=== PATIENT | male | born 1940 | race Caucasian/White ===

== ENCOUNTER → 2023-06-18 | Outpatient (CLI) | payer MEDICARE, OTHER ==
[2023-06-18 15:08] LABS: BASOPHILS ABSOLUTE AUTO 0.07 K/mm3 (0.00-0.23); BASOPHILS PERCENT AUTO 1 % (0-2); EOSINOPHILS ABSOLUTE AUTO 0.01 K/mm3 (0.00-0.68); EOSINOPHILS PERCENT AUTO 0 % (0-6); Hematocrit 46.3 % (37.0-53.0); Hemoglobin 16.4 g/dL (13.5-17.5); IMMATURE GRAN ABSOLUTE AUTO 0.24 K/mm3 (0.00-0.10); IMMATURE GRAN PERCENT AUTO 3 % (0-1); LYMPHOCYTES ABSOLUTE AUTO 1.43 K/mm3 (0.84-5.20); LYMPHOCYTES PERCENT AUTO 18 % (21-46); MONOCYTES ABSOLUTE AUTO 0.73 K/mm3 (0.16-1.47); MONOCYTES PERCENT AUTO 9 % (4-13); Mean Corpuscular HGB 33.8 pg (26.0-34.0); Mean Corpuscular HGB Conc 35.4 g/dL (31.5-36.5); Mean Corpuscular Volume 96 fL (80-100); Mean Platelet Volume 9.4 fL (9.1-12.4); NEUTROPHILS ABSOLUTE AUTO 5.55 K/mm3 (1.96-9.15); NEUTROPHILS PERCENT AUTO 69 % (41-73); Platelet Count 165 K/mm3 (150-400); RDW Coefficient Variation 12.6 % (11.7-14.2); RDW Standard Deviation 43.8 fL (35.1-46.3); Red Blood Cell Count 4.85 M/mm3 (4.30-5.90); White Blood Cell Count 8.03 K/mm3 (4.00-11.30)
[2023-06-18 15:18] LABS: Albumin, Blood 3.7 g/dL (3.4-5.0); Albumin/Globulin Ratio 1.1 (0.8-1.8); Bilirubin, Total 0.6 mg/dL (0.1-1.0); Bun/Creatinine Ratio 11.7 (12.0-20.0); Calcium, Blood 9.8 mg/dL (8.5-10.1); Creatinine, Blood 1.11 mg/dL (0.60-1.20); Globulin, Blood 3.3 g/dL (2.2-4.0); Potassium, Blood 4.1 mmol/L (3.5-5.5)
== END ==
LOC: LAB SHORT 14:56 → LAB 14:56
PROVIDERS: Emergency Medicine
DX: G43.909 Migraine, unspecified, not intractable, without status migrainosus (principal); Z79.899 Other long term (current) drug therapy
CPT/HCPCS: 36415; 80053; 80185; 83036; 85025

== ENCOUNTER 2023-06-28 10:14 | Emergency (ER) | payer MEDICARE, OTHER ==
[~2023-06-28] VITALS: Ht 160 cm; Wt 63.5 kg
[2023-06-28] MEDS ORDERED: NEURONTIN300 MG PO (10:34)
[2023-06-28] MEDS ORDERED: PHENYTOIN SODI100 MG PO (10:34)
[2023-06-28 11:10] LABS: BASOPHILS ABSOLUTE AUTO 0.08 K/mm3 (0.00-0.23); BASOPHILS PERCENT AUTO 1 % (0-2); EOSINOPHILS ABSOLUTE AUTO 0.03 K/mm3 (0.00-0.68); EOSINOPHILS PERCENT AUTO 0 % (0-6); Hematocrit 44.4 % (37.0-53.0); Hemoglobin 15.4 g/dL (13.5-17.5); IMMATURE GRAN PERCENT AUTO 2 % (0-1); LYMPHOCYTES ABSOLUTE AUTO 1.33 K/mm3 (0.84-5.20); LYMPHOCYTES PERCENT AUTO 14 % (21-46); MONOCYTES ABSOLUTE AUTO 1.19 K/mm3 (0.16-1.47); MONOCYTES PERCENT AUTO 13 % (4-13); Mean Corpuscular HGB 32.8 pg (26.0-34.0); Mean Corpuscular HGB Conc 34.7 g/dL (31.5-36.5); Mean Corpuscular Volume 95 fL (80-100); Mean Platelet Volume 9.7 fL (9.1-12.4); NEUTROPHILS ABSOLUTE AUTO 6.54 K/mm3 (1.96-9.15); NEUTROPHILS PERCENT AUTO 70 % (41-73); Platelet Count 195 K/mm3 (150-400); RDW Standard Deviation 41.7 fL (35.1-46.3); Red Blood Cell Count 4.69 M/mm3 (4.30-5.90); White Blood Cell Count 9.37 K/mm3 (4.00-11.30)
[2023-06-28 11:26] LABS: Albumin, Blood 2.5 g/dL (3.4-5.0); Albumin/Globulin Ratio 0.6 (0.8-1.8); Bilirubin, Total 0.7 mg/dL (0.1-1.0); Bun/Creatinine Ratio 32.1 (12.0-20.0); C-REACTIVE PROTEIN, EXT RANGE 16.1 mg/dL (0.000-0.300); Calcium, Blood 11.1 mg/dL (8.5-10.1); Creatinine, Blood 0.84 mg/dL (0.60-1.20); Potassium, Blood 3.8 mmol/L (3.5-5.5); Total Protein, Blood 6.5 g/dL (6.4-8.2)
[2023-06-28 11:29] LABS: Dilantin (Phenytoin), Total 9.4 ug/mL (10.0-20.0)
[2023-06-28] MEDS ORDERED: Cyclobenzaprine HCl 10 MG Tab PO ONE (12:20)
[2023-06-28 13:01] LABS: Source, Urine Clean Catch
[2023-06-28] MEDS ORDERED: CYCL10 PO (13:12)
[2023-06-28] MEDS ORDERED: ULTRA-LIGHT RO1 EACH MC (13:12)
[2023-06-28 13:15] VITALS: BP 153/67
[2023-06-28 13:16] LABS: Appearance, Urine Clear (Clear); Bilirubin, Urine Neg (Neg); Blood, Urine Neg (Neg); Color, Urine Yellow (P-Yellow); Glucose Qualitative, Urine Neg (Neg); Ketones, Urine Neg (Neg); Leukocyte Esterase, Urine Neg (Neg); Nitrite, Urine Neg (Neg); Protein, Urine 1+ (Neg); Urobilinogen, Urine 1+ (Normal)
[2023-06-28 13:39] LABS: U Amphetamine Screen Not Detected; U Barbituate Screen DETECTED; U Benzodiazapine Screen Not Detected; U Buprenorphine Screen Not Detected; U Cannabinoids Screen Not Detected; U Cocaine Screen Not Detected; U Methadone Screen Not Detected; U Methamphetamine Screen Not Detected; U Opiates Screen Not Detected; U Oxycodone Screen Not Detected; U Phencyclidine Screen Not Detected
== END 2023-06-28 13:25 | disposition home or self-care (01) ==
LOC: ER 10:14
PROVIDERS: Emergency Medicine
DX: S22.41XA Multiple fractures of ribs, right side, initial encounter for closed fracture (principal); W18.30XA Fall on same level, unspecified, initial encounter; Z79.899 Other long term (current) drug therapy; G40.909 Epilepsy, unspecified, not intractable, without status epilepticus; F17.200 Nicotine dependence, unspecified, uncomplicated
CPT/HCPCS: 71045; 80053; 80185; 85025; 85651; 86140; 93005; 93010; 99285-25; A9270

== ENCOUNTER 2023-06-30 09:56 | Inpatient (IN) | payer MEDICARE, OTHER ==
[2023-06-30] VITALS (7 sets, daily range): BP systolic 124–149; BP diastolic 54–91
[~2023-06-30] VITALS: Ht 182.9 cm; Wt 63.6 kg
[~2023-06-30 09:56] MED LIST: CYCL10 PO; NEURONTIN300 MG PO; PHENYTOIN SODI100 MG PO; ULTRA-LIGHT RO1 EACH MC
[2023-06-30 10:34] LABS: Hematocrit 50.4 % (37.0-53.0); Hemoglobin 17.4 g/dL (13.5-17.5); Mean Corpuscular HGB Conc 34.5 g/dL (31.5-36.5); Mean Corpuscular Volume 96 fL (80-100); Mean Platelet Volume 10.2 fL (9.1-12.4); NRBC ABSOLUTE 0.02 K/mm3 (0.00-0.02); NRBC Auto 0.2 /100 WBC (0.0-0.2); Platelet Count 268 K/mm3 (150-400); RDW Coefficient Variation 12.1 % (11.7-14.2); Red Blood Cell Count 5.27 M/mm3 (4.30-5.90); White Blood Cell Count 12.24 K/mm3 (4.00-11.30)
[2023-06-30] MEDS ORDERED: NS 1,000 ML IV SCH ×2 (10:35→16:40)
[2023-06-30] MEDS ORDERED: Fosphenytoin PE 50 MG/ML PE 2ML Vial IV ONE (10:45)
[2023-06-30 10:47] LABS: Base Excess Venous -6.9 mmol/L; Bicarbonate Venous 19.4 mmol/L (24.0-30.0); PCO2 Venous 37.2 mmHg (38-42); pH Blood Venous 7.32 (7.34-7.37)
[2023-06-30 10:53] LABS: BASOPHILS PERCENT MAN 0 % (0-2); EOSINOPHILS PERCENT MAN 0 % (0-6); LYMPHOCYTES % ATYPICAL MANUAL 1 % (0-0); LYMPHOCYTES ABSOLUTE MAN 1.59 K/mm3 (0.84-5.20); LYMPHOCYTES PERCENT MAN 12 % (21-46); METAMYELOCYTE ABSOLUTE MAN 0.36 K/mm3 (0.00-0.00); METAMYELOCYTE PERCENT MAN 3 % (0-0); MONOCYTES ABSOLUTE MAN 0.48 K/mm3 (0.16-1.47); MONOCYTES PERCENT MAN 4 % (4-13); MYELOCYTE ABSOLUTE MAN 0.24 K/mm3 (0.00-0.00); MYELOCYTE PERCENT MAN 2 % (0-0); NEUTROPHILS ABSOLUTE MAN 9.54 K/mm3 (1.96-9.15); SEG NEUTROPHILS PERCENT MAN 78 % (41-73); TOTAL CELLS COUNTED 100
[2023-06-30] MEDS ORDERED: NS IV STA (10:57)
[2023-06-30] MEDS ORDERED: FOSPHENYTOIN PE IV STA (10:57)
[2023-06-30 11:22] LABS: Albumin, Blood 2.8 g/dL (3.4-5.0); Albumin/Globulin Ratio 0.6 (0.8-1.8); Bilirubin, Total 1.6 mg/dL (0.1-1.0); Bun/Creatinine Ratio 24.6 (12.0-20.0); Calcium, Blood 12.8 mg/dL (8.5-10.1); Creatinine, Blood 1.38 mg/dL (0.60-1.20); Globulin, Blood 4.5 g/dL (2.2-4.0); Potassium, Blood 3.8 mmol/L (3.5-5.5); Total Protein, Blood 7.3 g/dL (6.4-8.2)
[2023-06-30 11:30] LABS: Magnesium, Blood 2.9 mg/dL (1.6-2.4)
[2023-06-30 11:32] LABS: C-REACTIVE PROTEIN, EXT RANGE >19.000 mg/dL (0.000-0.300)
[2023-06-30 11:44] LABS: Source, Urine Straight Cath
[2023-06-30 11:56] LABS: Appearance, Urine Clear (Clear); Bilirubin, Urine Neg (Neg); Blood, Urine 3+ (Neg); Color, Urine Yellow (P-Yellow); Glucose Qualitative, Urine Neg (Neg); Ketones, Urine 1+ (Neg); Leukocyte Esterase, Urine Neg (Neg); Nitrite, Urine Neg (Neg); Protein, Urine 1+ (Neg); Specific Gravity, Urine 1.025 (1.003-1.022); Urobilinogen, Urine 1+ (Normal)
[2023-06-30 12:09] LABS: Bacteria Rare /hpf; Spermatozoa Rare /hpf; Squamous Epithelial Cells Rare /hpf (Few); White Blood Cells, Urine Not Seen /hpf (0-5)
[2023-06-30 12:13] LABS: Influenza A, PCR NEGATIVE (NEGATIVE); Influenza B, PCR NEGATIVE (NEGATIVE); Resp Syncytial Virus, PCR NEGATIVE (NEGATIVE); SARS-Cov-2 (COVID-19) PCR, MMC NEGATIVE (NEGATIVE)
[2023-06-30] MEDS ORDERED: Cefepime HCl 2,000 MG in NS 100 ML IV ONE (13:05)
[2023-06-30] MEDS ORDERED: LORazepam 2 MG/ML 1ML Injection IV PRN (13:25)
[2023-06-30] MEDS ORDERED: FLU VACC QS2023-24(6MOS UP)/PF 60 MCG/0.5 ML SYRINGE IM SCH (13:25)
[2023-06-30] MEDS ORDERED: Piperacillin/Tazobactam Sod 4.5 GM in NS 100 ML IV SCH (14:00)
[2023-06-30 14:31] LABS: Dilantin (Phenytoin), Total 23.7 ug/mL (10.0-20.0)
[2023-06-30] MEDS ORDERED: NS 250 ML IV PRN (14:35)
--- NOTE | 2023-06-30 15:53 | NUR ---
PT ADMIT.... PT ARRIVED TO THE UNIT AT 1450 HE IS VERY CONFUSED AND COMBATIVE TOWARDS STAFF. PT IS IN SR IN THE 90'S BP STABLE WITH MAPS>65. PT IS ON RA WITH O2 SATS 90-94% L/S CLEAR AND DIM T/O. BT PRESENT AND VERY HYPOACTIVE. TEMP MANCIA IS IN PLACE DRAINING DARK YELLOW URINE TO GRAVITY. PT'S TEMP AT THE TIME OF ADMIT WAS 98.9 THIS INCREASED TO 99.6. THE PT WAS VERY COMBATIVE DURING ANY TYPE OF CARE ESPECIALLY ORAL CARE. 2 PRESSURE ULCERS WERE NOTED TO THE PT'S SCARUM, ON THE RIGHT SIDE IS A STAGE 2 THE LEFT IS STAGE 1. PICTURES WERE TAKEN AND PLACED IN THE CHART. WILL CONTINUE TO MONITOR.
--- NOTE | 2023-06-30 17:03 | NUR ---
SHIFT SUMMARY... PT CONTINUES TO BE CONFUSED, PT WAKES TO NOXIOUS STIMULI AND HAS VERY MUMBLED SPEECH. PT IS COMBATIVE AND AGRESSTIVE TOWARDS STAFF WHEN THEY ATTEMPT TO PROVIDE CARE. VS ARE STABLE, HE IS IN SR IN THE 90'S, MAPS ARE >65. TMAX THIS SHIFT 99.6. TEMP MANCIA IS PATENT AND DRAINING DARK YELLOW URINE TO GRAVITY. MEPILEX WAS PLACED TO THE SACRAL WOUNDS AND PICTURES WERE PLACED IN THE CHART. Q2 HR TURNS DONE. CALL LIGHT IN REACH, BED ALARM IS ON WILL CONTINUE TO MONITOR UNTIL REPORT IS GIVEN TO ONCOMING RN.
[2023-06-30 17:07] LABS: Albumin, Blood 2.1 g/dL (3.4-5.0); Albumin/Globulin Ratio 0.6 (0.8-1.8); Bilirubin, Total 1.2 mg/dL (0.1-1.0); Creatinine, Blood 1.25 mg/dL (0.60-1.20); Globulin, Blood 3.5 g/dL (2.2-4.0); Potassium, Blood 3.8 mmol/L (3.5-5.5); Total Protein, Blood 5.6 g/dL (6.4-8.2)
[2023-06-30 17:08] LABS: Calcium, Blood 10.2 mg/dL (8.5-10.1)
--- NOTE | 2023-06-30 20:00 | NUR ---
ASSUMPTION OF CARE: THIS RN ASSUMED CARE OF PT AT APPROX 1900, BEDSIDE REPORT TAKEN FROM JUANI COLEMAN. PT RETURNED FROM CT AT SHIFT CHANGE. ALERT, CONFUSED W/ MUMBLED SPEECH. ABLE TO NOD HEAD YES/NO TO ANSWER QUESTIONS APPROPRIATELY. COOPERATIVE W/ CARE ALTHOUGH PAINFUL W/ REPOSITIONING. HR 90-110'S, SINUS ON TELE. BP STABLE, MAP >65. DENIES CHEST PAIN/PRESSURE. SPO2 88-94% ON RA, RESPIRATIONS SHALLOW BUT UNLABORED. AFEBRILE AT START OF SHIFT W/ TEMP MANCIA IN PLACE. MANCIA PATENT AND DRAINING YELLOW URINE TO GRAVITY. NS INFUSING AT 125 ML/HR PER ORDERS. NPO AT THIS TIME. Q2HR REPOSITIONING IN PLACE. CALL LIGHT IN REACH, BED ALARM ON FOR PT SAFETY.
[2023-06-30] MEDS ORDERED: Ketorolac Tromethamine 15mg Vial IV PRN (23:15)
--- NOTE | 2023-06-30 23:15 | NUR ---
PHYSICIAN CONTACT: PT W/ CORE TEMP 100.7 AT THIS TIME. PT REPORTS FEELING COLD AND IS VISIBLY SHAKING WHILE LAYING IN BED. CALL PLACED TO OSIEL HARGROVE REGARDING ELEVATED TEMP. DISCUSSED LIVER ENZYMES CONTRAINDICATION TO TYLENOL. ORDERS RECEIVED FOR TORADOL 15MG IV Q6 PRN FEVER, WILL ADMINISTER PER EMAR.
[2023-07-01] VITALS (7 sets, daily range): BP systolic 145–164; BP diastolic 60–88
[2023-07-01 04:41] LABS: Hematocrit 40.7 % (37.0-53.0); Hemoglobin 13.8 g/dL (13.5-17.5); Mean Corpuscular HGB 32.7 pg (26.0-34.0); Mean Corpuscular HGB Conc 33.9 g/dL (31.5-36.5); Mean Corpuscular Volume 96 fL (80-100); Mean Platelet Volume 10.1 fL (9.1-12.4); Platelet Count 173 K/mm3 (150-400); RDW Coefficient Variation 12.5 % (11.7-14.2); RDW Standard Deviation 44.5 fL (35.1-46.3); Red Blood Cell Count 4.22 M/mm3 (4.30-5.90); White Blood Cell Count 6.32 K/mm3 (4.00-11.30)
--- NOTE | 2023-07-01 04:56 | NUR ---
END OF SHIFT: NO ACUTE EVENTS OVERNIGHT. PT'S MENTATION HAS REMAINED UNCHANGED W/ MUMBLED SPEECH. ABLE TO SAY YES/NO AND ABLE TO STATE THAT HE IS IN THE HOSPITAL IN [place]. VITAL SIGNS HAVE REMAINED STABLE, ON ROOM AIR ALL NIGHT. TEMP DECREASED FOLLOWING TORADOL ADMINISTRATION, SEE VITALS. RESISTENT TO Q2HR REPOSITIONING BUT SOMEWHAT AGREEABLE FOLLOWING EDUCATION ON PRESSURE ULCER PREVENTION. MANCIA CATH REMAINS PATENT, DRAINING TO GRAVITY. NO BM'S. REMAINS NPO. NO OTHER NEEDS AT THIS TIME. CALL LIGHT IN REACH, BED ALARM ON FOR SAFETY. WILL REPORT TO ONCOMING RN.
[2023-07-01 05:45] LABS: Albumin, Blood 2.2 g/dL (3.4-5.0); Albumin/Globulin Ratio 0.7 (0.8-1.8); Bilirubin, Total 1.5 mg/dL (0.1-1.0); Bun/Creatinine Ratio 26.8 (12.0-20.0); Calcium, Blood 10.7 mg/dL (8.5-10.1); Creatinine, Blood 1.53 mg/dL (0.60-1.20); Globulin, Blood 3.2 g/dL (2.2-4.0); Potassium, Blood 3.7 mmol/L (3.5-5.5); Total Protein, Blood 5.4 g/dL (6.4-8.2)
[2023-07-01 05:51] LABS: BAND PERCENT MAN 7 % (0-8); BASOPHILS PERCENT MAN 0 % (0-2); EOSINOPHILS PERCENT MAN 0 % (0-6); LYMPHOCYTES ABSOLUTE MAN 1.01 K/mm3 (0.84-5.20); LYMPHOCYTES PERCENT MAN 16 % (21-46); MONOCYTES ABSOLUTE MAN 0.63 K/mm3 (0.16-1.47); MONOCYTES PERCENT MAN 10 % (4-13); NEUTROPHILS ABSOLUTE MAN 4.67 K/mm3 (1.96-9.15); SEG NEUTROPHILS PERCENT MAN 67 % (41-73); TOTAL CELLS COUNTED 100
[2023-07-01] MEDS ORDERED: Enoxaparin 40 MG/0.4 ML SYR SC SCH (09:00)
[2023-07-01] MEDS ORDERED: Dextrose 5% 1,000 ML IV SCH ×2 (09:35→15:40)
[2023-07-01] MEDS ORDERED: FentaNYL Citrate 50 MCG/ML 2 ML Injection IV PRN (10:10)
[2023-07-01 10:43] LABS: International Normalized Ratio 1.97; Prothrombin Time Results 19.9 Sec (9.7-11.5)
--- NOTE | 2023-07-01 10:49 | NUR ---
RETURNED CALL TO SPOUSE, NO ANSWER MESSAGE LEFT TO RETURN CALL.
[2023-07-01] MEDS ORDERED: Dilantin 100 m100 MG PO (13:35)
[2023-07-01 14:30] LABS: Albumin, Blood 2.2 g/dL (3.4-5.0); Albumin/Globulin Ratio 0.7 (0.8-1.8); Bilirubin, Total 1.5 mg/dL (0.1-1.0); Bun/Creatinine Ratio 29.9 (12.0-20.0); Creatinine, Blood 1.47 mg/dL (0.60-1.20); Globulin, Blood 3.1 g/dL (2.2-4.0); Potassium, Blood 3.3 mmol/L (3.5-5.5); Total Protein, Blood 5.3 g/dL (6.4-8.2)
[2023-07-01] MEDS ORDERED: levETIRAcetam 750 MG in NS 100 ML IV SCH (16:00)
[2023-07-01] MEDS ORDERED: LORazepam 2 MG/ML 1ML Injection IV PRN (16:00)
--- NOTE | 2023-07-01 18:06 | NUR ---
SHIFT SUMMARY PT ALERT ORIENTED TO SELF AND SPOUSE AT TIMES. PT CONFUSED MAJORITY OF SHIFT REPORTING HE THINKS HE IS IN HIS BATHROOM AT HOME. PT DENIES CHEST PAIN/PRESSURE. VSS. PT ASSESSED FOR PAIN USING FLACC SCALE MEDICATED PER EMAR. BREATHING EVEN AND UNLABORED. PT INTERMITTANTLY AGITATED THROUGHOUT SHIFT, MEDICATED PER EMAR. CATHETER D/C PER MD. PT NOTED TO HAVE NO URINE OUTPUT, WAS BLADDER SCANNED AND NOTED TO HAVE >900ML URINE, NOTIFIED ORDERS GIVEN FOR STRAIGHT CATH. DR. SALAZAR NOTIFIED OF WORSENING AGITATION THIS EVENING, ORDERS GIVEN AND PT MEDICATED PER EMAR. PT SPOUSE BROUGHT HOME MEDICATIONS IN, MEDS LOCKED IN DRAWER. NO ACUTE CHANGES.
[2023-07-02 03:43] VITALS: BP 156/77
[2023-07-02 04:35] LABS: Hematocrit 38.6 % (37.0-53.0); Mean Corpuscular HGB 32.5 pg (26.0-34.0); Mean Corpuscular HGB Conc 33.7 g/dL (31.5-36.5); Mean Corpuscular Volume 97 fL (80-100); Mean Platelet Volume 9.8 fL (9.1-12.4); NRBC ABSOLUTE 0.05 K/mm3 (0.00-0.02); NRBC Auto 0.7 /100 WBC (0.0-0.2); Platelet Count 155 K/mm3 (150-400); RDW Coefficient Variation 12.6 % (11.7-14.2); RDW Standard Deviation 45.1 fL (35.1-46.3); White Blood Cell Count 6.77 K/mm3 (4.00-11.30)
--- NOTE | 2023-07-02 04:43 | NUR ---
SHIFT SUMMARY PT RESPONDS TO VERBAL STIMULI, ORIENTED X1-2. CAN ANSWER YES/NO QUESTIONS. GRABBING STAFF HANDS WITH CARE. ST ON MONITOR WITH HR 100'S. BP STABLE. AFEBRILE. THIS RN PERFORMED STRAIGHT CATH X2 THIS SHIFT. PT NOTED TO BE RESTLESS MULTIPLE TIMES DURING THIS SHIFT; MEDICATED PER EMAR WITH ATIVAN AND FENTANYL. TACHYPNEA NOTED T/O THIS SHIFT; APPEARS TO BE WORSE WHEN AGGITATED/RESTLESS. BLADDER SCANNING DONE Q6HRS AND NEEDED; PT HAS HAD TOTAL OF 3 STRAIGHT CATHS PERFORMED BY STAFF SINCE BLANCHE BARLOW'D. MEPILEX ON COCCYX CHANGED, DRESSING C/D/I. REPOSITIONING Q2HRS. FLOATING HEELS WITH PILLOWS. ORAL CARE DONE Q4HRS AND NEEDED WITH MOUTH MOISTURIZER. BED IN LOWEST POSITION AND CALL LIGHT WITHIN REACH. THIS RN WILL REPORT TO ONCOMING DAYSHIFT RN.
[2023-07-02 05:03] LABS: Alanine Aminotransfer (ALT/SGP 1406 U/L (12-78); Albumin, Blood 2.2 g/dL (3.4-5.0); Albumin/Globulin Ratio 0.8 (0.8-1.8); Alk Phos 277 U/L (50-136); Anion Gap 0 mmol/L (6-16); Aspartate Aminotrans (AST/SGOT 1641 U/L (12-37); Bilirubin, Total 1.7 mg/dL (0.1-1.0); Blood Urea Nitrogen 32 mg/dL (8-24); Bun/Creatinine Ratio 25.6 (12.0-20.0); C-REACTIVE PROTEIN, EXT RANGE >19.000 mg/dL (0.000-0.300); CO2, Blood 28 mmol/L (21-32); Calcium, Blood 10.9 mg/dL (8.5-10.1); Chloride, Blood 125 mmol/L (98-108); Creatinine, Blood 1.25 mg/dL (0.60-1.20); Globulin, Blood 2.9 g/dL (2.2-4.0); Glomerular Filtration Rate 58 (60-); Glucose, Blood 145 mg/dL (70-99); Phosphorus, Blood 2.5 mg/dL (2.5-4.9); Potassium, Blood 3.2 mmol/L (3.5-5.5); Sodium, Blood 153 mmol/L (136-145); Total Protein, Blood 5.1 g/dL (6.4-8.2)
[2023-07-02 05:36] LABS: BAND PERCENT MAN 3 % (0-8); BASOPHILS PERCENT MAN 0 % (0-2); EOSINOPHILS PERCENT MAN 0 % (0-6); LYMPHOCYTES % ATYPICAL MANUAL 1 % (0-0); LYMPHOCYTES ABSOLUTE MAN 1.08 K/mm3 (0.84-5.20); LYMPHOCYTES PERCENT MAN 15 % (21-46); METAMYELOCYTE ABSOLUTE MAN 0.13 K/mm3 (0.00-0.00); METAMYELOCYTE PERCENT MAN 2 % (0-0); MONOCYTES PERCENT MAN 3 % (4-13); MYELOCYTE PERCENT MAN 3 % (0-0); NEUTROPHILS ABSOLUTE MAN 5.14 K/mm3 (1.96-9.15); SEG NEUTROPHILS PERCENT MAN 73 % (41-73); TOTAL CELLS COUNTED 100
[2023-07-02 07:18] VITALS: BP 176/75
--- NOTE | 2023-07-02 07:48 | NUR ---
AM UPDATE: ASSUMED CARE OF PT AT 0700. PT RESPONDS TO MINIMAL STIMULI THIS AM, UNABLE TO FOLLOW COMMANDS OR ANSWER ORIENTATION QUESTIONS. OCCASIONALLY MOANS. PT OVERALL WITH FATIGUED APPEARANCE. BP STABLE, HR ST 110'S, AFEBRILE. RESPIRATIONS SHALLOW. RESP 22-26. PATIENT CURRENTLY DNR. CALL PLACED TO PALLATIVE CARE THIS AM. PALLATIVE TO CALL DOCTOR AND PT SPOUSE.
[2023-07-02] MEDS ORDERED: Piperacillin/Tazobactam Sod 4.5 GM in NS 100 ML IV SCH (08:00)
[2023-07-02] MEDS ORDERED: Vancomycin HCL 1,500 MG in NS 250 ML IV ONE (08:05)
[2023-07-02] MEDS ORDERED: Dextrose 5% 1,000 ML IV SCH (08:10)
[2023-07-02 10:02] VITALS: BP 153/82
--- NOTE | 2023-07-02 10:17 | NUR ---
UPDATE: 0830: DR ARROYO, PALLATIVE CARE NURSE, AND THIS RN AT BEDSIDE TO DISCUSS PT PLAN OF CARE WITH SPOUSE. PT REMAINS MINIMALLY RESPONSIVE, RESPONDS ONLY TO PAINFUL STIMULI, BP AND HR STABLE, TEMP 100.1, RESPIRATIONS REMAIN SHALLOW, RESP 24-26. PT MEDICATED PER EMAR FOR PAIN.
--- NOTE | 2023-07-02 10:31 | NUR ---
Initial palliative care consult: Oneil is a 82 year old with a history of epilepsy, TBI and remote ETOH use. He was admitted with severe sepsis on 06/30/23. Per MD progress note on 07/01/23 no clear infection source noted. 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 Pt and were told about this diagnosis during this hospital stay. They were unaward of the cancer. This morning, this board writer was called by the PCU charge out clerk to contact pt's as pt is much less responsive this morning. Spoke with Dr. Haynes who requested that this board writer have pt's come in so that he can meet with her. Lizzie, pt's arrived and Dr. Haynes and this board writer met at the bedside. Pt is less responsive today. Unable to void, has been straight cathed X 3 since gutierres removed yesterday. RR 36, shallow. Ox sats 96% on RA. Oneil will occasionally pull at lines and squeeze hands, not always on command. Moans occasionally but will not open his eyes. Dr. Haynes gave pt's an update and answered her questions. Dr. Haynes requested that pt's consider pt's wishes and consider transitioning to comfort care should he continue to decline. Spent quite some time visiting with Lizzie after MD left. Lizzie states she and Oneil have been 23 years. 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 Lizzie is struggling to make a decision about what to do for Oneil as they never discussed planning for end of life. Lizzie did say the only thing Oneil ever told her is that he wishes to be cremated. Lizzie states that Oneil is stubborn and likes to do things his way. She states she didn't know he had cancer, he never complained about any symptoms. She reports that over the past year she has noticed he has become less mobile, not found vini in the things he used to enjoy and has been taking 3-4 naps a days despite sleeping at night. She reports he has always weighed around 150 pounds since they have been together. He is current weight is 139 pounds. She states he has not wanted to eat much over the past week or so, prior to that his appetite was stable. Lizzie states she would like to try the new antibiotics that Dr. Haynes ordered this morning to see if there will be any improvement. She is aware of the cancer and that it has spread making it incurable at this time. Lizzie states she is open to transitioning to comfort care in the near future but wants to make sure that she gives him the best fighting chance to improve. Emotional support and education provided. Also provided a copy of Considering Comfort Care to her. Lizzie stated to this board writer that she felt much better after talking about his current status and the plan moving forward. She states that Oneil would not want to be kept alive if this is the quality of life he wree to have. Updated Dr. Haynes and nursing. Lizzie is planning to leave the hospital for awhile but requested a call with any changes. PC to continue to follow for support and education.
[2023-07-02 11:50] VITALS: BP 151/75
--- NOTE | 2023-07-02 11:51 | NUR ---
UPDATE: PT WORK OF BREATHING INCREASING. RESP 30-34. CALL PLACED TO DR CRUZ MARTINS AT BEDSIDE. CALL PLACED TO PT SPOUSE FOR PT UPDATE, NO ANSWER, WATIING FOR CALL RETURN. MANCIA CATHETER IN PLACE, DRAINING DARK URINE TO GRAVITY. PT REMAINS ONLY RESPONSIVE TO PAIN. BP STABLE. HR ST 110'S.
[2023-07-02] MEDS ORDERED: Morphine Sulfate 20 MG/1ML 1 ML Oral Syringe SL PRN (13:50)
[2023-07-02] MEDS ORDERED: Haloperidol Lactate Inj. 5 MG/ML Injection IV PRN (13:50)
[2023-07-02] MEDS ORDERED: Morphine Sulfate 10 MG/ML 1MLSYR IV PRN (13:50)
[2023-07-02] MEDS ORDERED: LORazepam 2 MG/ML 1ML Injection IV PRN (13:50)
--- NOTE | 2023-07-02 15:15 | NUR ---
UPDATE: PT TRANSITIONED TO COMFORT CARE AT 1330. MEDICATED PER EMAR. MEDICAL NO TELE STATUS.
--- NOTE | 2023-07-02 17:09 | NUR ---
SHIFT SUMMARY: PT REMAINS REPONSIVE TO PAINFUL STIMULI ONLY. PT MADE COMFORT CARE THIS AFTERNOON, MEDICATED FOR AIR HUNGER AND PAIN PER EMAR. REPOS Q2 TO MAINTAIN SKIN INTEGRITY. MANCIA CATH REMAINS IN PLACE, PATENT AND DRAINING DARK JOSE URINE TO GRAVITY. CALL PLACED TO SPOUSE THIS AFTERNOON, UPDATED ON PT PLAN OF CARE. PT TRANSFERRING TO MEDICAL ROOM 348 THIS EVENING. WILL GIVE REPORT TO MED RN.
--- NOTE | 2023-07-02 18:09 | NUR ---
TRANFER NOTE: ASSUMED CARE OF PATIENT WHEN TRANSFERRED FROM [facility] TO MEDICAL [facility]. PATIENT WAS AND REMAINS TO BE UNRESPONSIVE;TACHYPNEANIC/SHALLOW RESPIRATIONS. CHECKED PATENCY OF PATIENT'S POWERGLIDE, FLUSHES AND DRAWS. CALLED DR. SALAZAR ABOUT MEDS THAT CAME UP WITH PATIENT; D5, VANCO, AND KEPPRA. PER DR. SALAZAR STOP EVERYTHING, BUT KEPPRA. UPDATED EMAR ORDERS VERBALIZED. PATIENT SETTLED IN ROOM, APPEARS COMFORTABLE AND RESTING, NO SIGNS OR SYMPTOMS, PLAN OF CARE ONGOING-COMFORT CARE.
--- NOTE | 2023-07-03 02:45 | NUR ---
THIS RN ATTEMPTED TO CANTACT PATIENTS SENTHIL AT 0023 REGARDING PATIENTS PASSING AT 0010. I ATTEMPTED TO CALL PATIENTS SENTHIL COLLIER AT NUMBER LISTED; - DID NOT ANSWER. I ATTEMPTED TO CONTACT SENTHIL SHULTZ AGAIN AT 0125 WITH NO ANSWER. I ATTEMPED TO CONTACT FOR A THIRD TIME AT 0142; VOICEMAIL LEFT WITH THIS RN'S NAME, WHERE I WAS CALLING FROM AND A REQUEST FOR HER TO CALL BACK AT HER EARLIEST CONVENIENCE.
--- NOTE | 2023-07-03 07:25 | NUR ---
spouce pt spouce called back. Notified her of husbands passing. She chose [facility]. Care ongoing.
[2023-07-03] MEDS ORDERED: Dextrose 5% 1,000 ML IV SCH (08:10)
--- NOTE | 2023-07-03 09:00 | NUR ---
PETE FREEMAN HERE TO REMOVE PT REMAINS. DENTURESD TOP/BOTTOM AND A YELLOW RING WITH 3 CLEAR STONES SENT WITH REMAINS. CARE ONGOING.
[2023-07-03 13:47] LABS: HBV SURFACE AG CONFIRMATION Non Confirmed (Non Confirmed)
[2023-07-03 13:48] LABS: HEPATITIS A ANTIBODY, IGM Negative (Negative); HEPATITIS B CORE ANTIBODY, IGM Negative (Negative); HEPATITIS B SURFACE ANTIGEN See Confirm (Negative); HEPATITIS C AB CIA INTERP Negative (Negative); HEPATITIS C ANTIBODY CIA INDEX <0.02 IV
== END 2023-07-03 00:10 | DRG 871 ==
LOC: ER 09:56 → PCU 13:23 → MEDS 07-02 17:53
PROVIDERS: Student in an Organized Health Care Education/Training Program; ADMIT Internal Medicine
PROC: 3E03329 Introduction of Other Anti-infective into Peripheral Vein, Percutaneous Approach (ICD-10-PCS; principal; 2023-06-30)
PROC: 0T9B70Z Drainage of Bladder with Drainage Device, Via Natural or Artificial Opening (ICD-10-PCS; 2023-06-30)
DX: A41.9 Sepsis, unspecified organism (principal); G92.8 Other toxic encephalopathy; S22.41XA Multiple fractures of ribs, right side, initial encounter for closed fracture; E87.0 Hyperosmolality and hypernatremia; E87.20 Acidosis, unspecified; N17.9 Acute kidney failure, unspecified; E87.1 Hypo-osmolality and hyponatremia; C78.7 Secondary malignant neoplasm of liver and intrahepatic bile duct; C34.31 Malignant neoplasm of lower lobe, right bronchus or lung; Z51.5 Encounter for palliative care; Z66 Do not resuscitate; R65.20 Severe sepsis without septic shock; E83.52 Hypercalcemia; R79.1 Abnormal coagulation profile; G40.909 Epilepsy, unspecified, not intractable, without status epilepticus; F17.200 Nicotine dependence, unspecified, uncomplicated; L89.159 Pressure ulcer of sacral region, unspecified stage; I10 Essential (primary) hypertension; I95.9 Hypotension, unspecified; R33.9 Retention of urine, unspecified; Z87.820 Personal history of traumatic brain injury; Z11.52 Encounter for screening for COVID-19; W18.30XA Fall on same level, unspecified, initial encounter; Z79.899 Other long term (current) drug therapy
CPT/HCPCS: 0241U; 36415; 51701; 51702; 70450; 71045; 71260; 74177; 76705; 80053; 80074; 80185; 81001; 82140; 82248; 82330; 82570; 82803; 82947; 83605; 83735; 83970; 84100; 84145; 84146; 84300; 84484; 85025; 85379; 85610; 85651; 86140; 87040; 93005; 93010; 93975; 96361-59; 96365-59; 96367-59; 99285-25; A9270; J0692; J1650; J1885; J1953; J2060; J2270; J2543; J3010; J3370; J7030; J7050; J7070; Q2009; Q9967